=== PATIENT | female | born 1980 | race Asian ===

== ENCOUNTER 2017-04-20 12:27 | Emergency (ER) | payer MEDICAID ==
[~2017-04-20] VITALS: Ht 160 cm; Wt 79.4 kg
[2017-04-20 12:38] VITALS: BP 116/74; Ht 160 cm; Wt 79.4 kg
== END 2017-04-20 15:03 | disposition home or self-care (01) ==
LOC: ED 12:27
DX: O26.892 Other specified pregnancy related conditions, second trimester (principal); R10.9 Unspecified abdominal pain; Z3A.27 27 weeks gestation of pregnancy